=== PATIENT | male | born 1980 | race Caucasian/White ===

== ENCOUNTER 2016-09-03 13:13 | Inpatient (IN) | payer OTHER ==
[2016-09-03] MEDS ORDERED: Sodium Chloride 0.9% 10 ML Syringe FLUSH PRN (13:26)
[2016-09-03] MEDS ORDERED: Sodium Chloride 0.9% 2.5 ML Syringe FLUSH PRN (13:26)
[2016-09-03] MEDS ORDERED: HYDROmorphone 2 MG/ML Syringe IVPUSH PRN (13:28)
[2016-09-03] MEDS ORDERED: Ondansetron 4 MG/2 ML SDV IVPUSH PRN (13:28)
[2016-09-03] MEDS ORDERED: diphenhydrAMINE 50 MG/ML SDV IVPUSH PRN (13:28)
[2016-09-03] MEDS: Piperacillin/Tazobactam 3.375 GM in Sodium Chloride 0.9% 50 ML IV SCH ×2 (13:59→21:39)
[2016-09-03] MEDS: Lactated Ringers 1,000 ML IV SCH ×2 (14:03→21:38)
[2016-09-03] MEDS ORDERED: Bupivacaine 0.5% 30 ML SDV ONE (14:06)
--- NOTE | 2016-09-03 14:39 | PCM.HP ---
H&P History of Present Illness - General Date of Service: 09/03/16 Admit Problem/Dx: Admission Diagnosis/Problem Admission Diagnosis/Problem Acute appendicitis Source of Information: Patient History Limitations: Reports: No Limitations - History of Present Illness Initial Comments - Free Text/Narative: patient is a 35-year-old male who developed right lower quadrant pain last evening. This was not associated bowel or bladder habits. He had 2 episodes of emesis this morning.The patient noticed that the pain is worse when getting up, twisting or sitting down. He denies fevers or chills. he did not take anything for the pain. He came in to his primary care provider's office this morning as the pain was not getting better. A work was performed that show white blood count of 17 with a left shift. CT the abdomen pelvis showed acute appendicitis but did not appear ruptured. Onset of Symptoms: Reports: Sudden Duration of Symptoms: Reports: Constant, Getting Worse Location: Reports: Abdomen Quality: Reports: Ache Severity: Moderate Improves with: Reports: None Context: Reports: Activity/Exercise, Lifting, Exertion. Denies: Sick Contact Associated Symptoms: Reports: No Other Symptoms - Related Data Allergies/Adverse Reactions: Allergies Allergy/AdvReac Type Severity Reaction Status Date / Time No Known Allergies Allergy Verified 04/13/14 13:25 Past Medical History Cardiovascular History: Reports: None Respiratory History: Reports: None Gastrointestinal History: Reports: None Musculoskeletal History: Reports: None Endocrine/Metabolic History: Reports: None Hematologic History: Reports: None - Past Surgical History Head Surgeries/Procedures: Reports: None HEENT Surgical History: Reports: None Cardiovascular Surgical History: Reports: None Respiratory Surgical History: Reports: None GI Surgical History: Reports: None Male Surgical History: Reports: None Endocrine Surgical History: Reports: None Neurological Surgical History: Reports: None Social & Family History - Family History Family Medical History: Noncontributory - Tobacco Use Smoking Status *Q: Never Smoker - Alcohol Use Alcohol Use History: No - Recreational Drug Use Recreational Drug Use: No Drug Use in Last 12 Months: No H&P Review of Systems - Review of Systems: Review Of Systems: ROS reveals no pertinent complaints other than HPI. Exam - Exam Exam: See Below - Exam General: Alert, Oriented HEENT: Conjunctiva Clear, EACs Clear, Hearing Intact, Mucosa Moist & [place], Nares Patent, Pupils Equal, Pupils Reactive Neck: Supple Lungs: Clear to Auscultation, Normal Respiratory Effort Cardiovascular: Regular Rate, Regular Rhythm Abdomen: Normal Bowel Sounds, Soft, McBurney's Sign Back Exam: Normal Inspection Extremities: Normal Inspection Skin: Warm, Dry, Intact, Other (Skin flaking from recent sunburn) Neuro Extensive - Mental Status: Alert, Oriented x3, Normal Mood/Affect, Nl Response to Commands Neuro Extensive - Motor, Sensory, Reflexes: Normal Gait, Normal Reflexes Psychiatric: Alert, Normal Affect, Normal Mood *Q Meaningful Use (ADM) - VTE *Q VTE Criteria *Q: - Stroke *Q Stroke Criteria *Q: - AMI *Q AMI Criteria *Q: - Problem List (1) Acute appendicitis SNOMED Code(s): 26480548 ICD Code: K35.80 - UNSPECIFIED ACUTE APPENDICITIS Status: Acute Current Visit: Yes Problem List Initiated/Reviewed/Updated: Yes Orders Last 24hrs: Active Orders 24 hr Category Date Time Status Patient Status [ADT] Routine ADT 09/03/16 13:26 Active Antiembolic Devices [RC] PER UNIT ROUTINE Care 09/03/16 13:28 Active Oxygen Therapy [RC] PRN Care 09/03/16 13:28 Active RT Incentive Spirometry [RC] ASDIRECTED Care 09/03/16 13:28 Active Up ad Mary [RC] ASDIRECTED Care 09/03/16 13:28 Active Verify Patient Consent Obtain [RC] ASDIRECTED Care 09/03/16 13:26 Active Vital Signs [RC] PER UNIT ROUTINE Care 09/03/16 13:28 Active Nothing Per Oral Diet [DIET] Diet 09/03/16 Lunch Active HYDROmorphone [Dilaudid] Med 09/03/16 13:28 Active 0.5 mg IVPUSH Q1H PRN Lactated Ringers [Ringers, Lactated] 1,000 ml Med 09/03/16 13:30 Active IV ASDIRECTED Ondansetron [Zofran] Med 09/03/16 13:28 Active 4 mg IVPUSH Q6H PRN Piperacillin/Tazobactam [Piperacil-Tazobact] 3.375 gm Med 09/03/16 13:30 Active Sodium Chloride 0.9% [Normal Saline] 50 ml IV Q8H Sodium Chloride 0.9% [Saline Flush] Med 09/03/16 13:26 Active 10 ml FLUSH ASDIRECTED PRN Sodium Chloride 0.9% [Saline Flush] Med 09/03/16 13:26 Active 2.5 ml FLUSH ASDIRECTED PRN diphenhydrAMINE [Benadryl] Med 09/03/16 13:28 Active 25 mg IVPUSH Q4H PRN Peripheral IV Insertion Adult [OM.PC] Routine Oth 09/03/16 13:26 Ordered Sequential Compression Device [OM.PC] Routine Oth 09/03/16 13:26 Ordered Resuscitation Status Routine Resus Stat 09/03/16 13:26 Ordered Medication Orders Diphenhydramine HCl (Benadryl) 25 mg IVPUSH Q4H PRN PRN Reason: Itching Hydromorphone HCl (Dilaudid) 0.5 mg IVPUSH Q1H PRN PRN Reason: Pain (severe 7-10) Lactated Ringer's (Ringers, Lactated) 1,000 mls @ 125 mls/hr IV ASDIRECTED [facility] Last Admin: 09/03/16 14:03 Dose: 125 mls/hr Piperacillin Sod/Tazobactam (Sod 3.375 gm/ Sodium Chloride) 50 mls @ 100 mls/ hr IV Q8H [facility] Last Admin: 09/03/16 13:59 Dose: 100 mls/hr Ondansetron HCl (Zofran) 4 mg IVPUSH Q6H PRN PRN Reason: Nausea/Vomiting Sodium Chloride (Saline Flush) 10 ml FLUSH ASDIRECTED PRN PRN Reason: Keep Vein Open Sodium Chloride (Saline Flush) 2.5 ml FLUSH ASDIRECTED PRN PRN Reason: Keep Vein Open Assessment/Plan Comment:: the patient and I discussed the pathophysiology of acute appendicitis. I explained that they goal standard treatment is to remove the appendix. We discussed laparoscopic and open appendectomy procedures. Should be unable to perform a successful laparoscopic I will convert to an open procedure. We discussed the risks including bleeding infection or damage to surrounding structures. The patient verbalized understanding and wishes to proceed. He is amenable to blood transfusions. The patient last drank something at 12:30 and we will perform the surgery 4 hours after this. He'll be admitted for observation, kept n.p.o., started on IV fluids, and given a dose of Zosyn in the meantime.
--- NOTE | 2016-09-03 15:16 | PCM.PREANE ---
Preanesthetic Assessment - Anesthesia/Transfusion/Family Hx Anesthesia History: No Prior Anesthesia Transfusion History: No Prior Transfusion(s) Intubation History: Unknown - Review of Systems General: No Symptoms Pulmonary: No Symptoms Cardiovascular: No Symptoms Gastrointestinal: No symptoms Neurological: No Symptoms Other: Reports: None - Physical Assessment ASA Class: 2 Mental Status: Alert & Oriented x3 Airway Class: Mallampati = 2 Dentition: Reports: Normal Dentition Thyro-Mental Finger Breadths: 3 Mouth Opening Finger Breadths: 3 ROM/Head Extension: Full Lungs: Clear to auscultation, Normal respiratory effort Cardiovascular: Regular Rate, Regular Rhythm - Allergies Allergies/Adverse Reactions: Allergies Allergy/AdvReac Type Severity Reaction Status Date / Time No Known Allergies Allergy Verified 04/13/14 13:25 - Acknowledgements Anesthesia Type Planned: General Anesthesia Pt an Appropriate Candidate for the Planned Anesthesia: Yes Alternatives and Risks of Anesthesia Discussed w Pt/Guardian: Yes Pt/Guardian Understands and Agrees with Anesthesia Plan: Yes PreAnesthesia Questionnaire HEENT History: Reports: None Cardiovascular History: Reports: None Respiratory History: Reports: None Gastrointestinal History: Reports: None Genitourinary History: Reports: None Musculoskeletal History: Reports: None Neurological History: Reports: None Psychiatric History: Reports: None Endocrine/Metabolic History: Reports: Obesity/BMI 30+ Hematologic History: Reports: None Immunologic History: Reports: None Oncologic (Cancer) History: Reports: None Dermatologic History: Reports: None - Infectious Disease History Infectious Disease History: Reports: None - Past Surgical History Head Surgeries/Procedures: Reports: None HEENT Surgical History: Reports: None Cardiovascular Surgical History: Reports: None Respiratory Surgical History: Reports: None GI Surgical History: Reports: None Male Surgical History: Reports: None Endocrine Surgical History: Reports: None Neurological Surgical History: Reports: None Musculoskeletal Surgical History: Reports: None Oncologic Surgical History: Reports: None Dermatological Surgical History: Reports: None - SUBSTANCE USE Smoking Status *Q: Never Smoker Recreational Drug Use History: No - CURRENT (IN HOUSE) MEDS Current Meds: Current Medications Diphenhydramine HCl (Benadryl) 25 mg IVPUSH Q4H PRN PRN Reason: Itching Hydromorphone HCl (Dilaudid) 0.5 mg IVPUSH Q1H PRN PRN Reason: Pain (severe 7-10) Lactated Ringer's (Ringers, Lactated) 1,000 mls @ 125 mls/hr IV ASDIRECTED [facility] Last Admin: 09/03/16 14:03 Dose: 125 mls/hr Piperacillin Sod/Tazobactam (Sod 3.375 gm/ Sodium Chloride) 50 mls @ 100 mls/ hr IV Q8H [facility] Last Admin: 09/03/16 13:59 Dose: 100 mls/hr Ondansetron HCl (Zofran) 4 mg IVPUSH Q6H PRN PRN Reason: Nausea/Vomiting Sodium Chloride (Saline Flush) 10 ml FLUSH ASDIRECTED PRN PRN Reason: Keep Vein Open Sodium Chloride (Saline Flush) 2.5 ml FLUSH ASDIRECTED PRN PRN Reason: Keep Vein Open Discontinued Medications Bupivacaine HCl (Marcaine 0.5%) Confirm Administered Dose 30 ml .ROUTE .[facility] Stop: 09/03/16 14:07
[2016-09-03] MEDS ORDERED: Propofol 200 MG/20 ML SDV ONE (16:34)
[2016-09-03] MEDS ORDERED: fentaNYL 250 MCG/5 ML SDV ONE ×2 (16:34→17:15)
[2016-09-03] MEDS ORDERED: Ondansetron 4 MG/2 ML SDV ONE (16:34)
[2016-09-03] MEDS ORDERED: Midazolam 1 MG/ML 2 ML SDV ONE (16:34)
[2016-09-03] MEDS ORDERED: Lidocaine 2% 5 ML SDV ONE (16:34)
[2016-09-03] MEDS ORDERED: Succinylcholine/Normal Saline 200 MG/10 ML Syringe ONE (16:34)
[2016-09-03] MEDS ORDERED: Rocuronium 10 MG/ML 10 ML Syringe ONE (16:34)
[2016-09-03] MEDS ORDERED: Labetalol 5 MG/ML 5 ML Syringe ONE (17:47)
[2016-09-03] MEDS ORDERED: ceFAZolin 1 GM Vial ONE (18:48)
[2016-09-03] MEDS ORDERED: HYDROmorphone 2 MG/ML Syringe ONE (18:57)
[2016-09-03] MEDS ORDERED: fentaNYL 100 MCG/2 ML SDV ONE ×2 (19:14→19:38)
[2016-09-03] MEDS ORDERED: fentaNYL 100 MCG/2 ML SDV IVPUSH PRN (19:22)
--- NOTE | 2016-09-03 20:06 | PCM.OPNOTE ---
- General Post-Op/Procedure Note Date of Surgery/Procedure: 09/03/16 Operative Procedure(s): Laparoscopic converted to open appendectomy Findings: Acutely inflamed and enlarged appendix. Non-perforated but retro-cecal making exposure difficult laparoscopically. Converted to open. Pre Op Diagnosis: Acute appendicitis Post-Op Diagnosis: same Anesthesia Technique: General ET tube Primary Surgeon: Valeri Cisneros Secondary Surgeon: Sergio Gu Anesthesia Provider: Jefry Vail Pathology: Appendix Fluid Replacement, Intraop: 2,500 Output, Urine Amount: 150 EBL in mLs: 50 Condition: Good Free Text/Narrative:: Intake & Output 09/03/16 09/03/16 09/03/16 06:59 14:59 22:59 Intake Total 0 Output Total 400 Balance -400
--- NOTE | 2016-09-03 21:27 | PCM.POSTAN ---
POST ANESTHESIA ASSESSMENT - MENTAL STATUS Mental Status: alert, oriented Free Text/Narrative:: Sleeping well in PACU, awakens to voice commands easily. - RESPIRATORY Respiratory Status: respiratory rate WNL, airway patent, O2 saturation stable - CARDIOVASCULAR CV Status: pulse rate WNL, blood pressure stable - GASTROINTESTINAL GI Status: no symptoms - PAIN Pain Score: 0 - POST OP HYDRATION Hydration Status: adequate & stable
--- NOTE | 2016-09-04 00:03 | OR ---
SURGEON: ERIC CASTELLANO MD DATE OF PROCEDURE: 09/03/2016 PREOPERATIVE DIAGNOSIS: Acute appendicitis. POSTOPERATIVE DIAGNOSIS: Acute appendicitis. PROCEDURE PERFORMED: Laparoscopic converted to open appendectomy. CO-SURGEON: Dr. Sergio Gu. ANESTHESIA: General endotracheal anesthesia. FLUIDS: 2500 mL crystalloid. URINE OUTPUT: 150 mL. ESTIMATED BLOOD LOSS: 50 mL. FINDINGS: Retrocecal appendix making laparoscopic exposure difficult. Converted to open. Appendix appeared grossly enlarged and inflamed, but not perforated. COMPLICATIONS: None. INDICATIONS FOR OPERATION: The patient is a 35-year-old male, who presents with 24 hours of right lower quadrant and flank pain. A workup revealed a white blood cell count of 17 with a left shift and CT of the abdomen and pelvis showed acute nonruptured appendicitis. The patient and I discussed the pathophysiology of acute appendicitis. We did explain that the gold standard of treatment is to remove the appendix. I explained both the laparoscopic as well as open appendectomy procedure. Should I be unable to perform it safely laparoscopically, I would then be converting to open. The risks were discussed including bleeding, infection, or damage to surrounding structures. The patient verbalized understanding and wishes to proceed. PROCEDURE IN DETAIL: The patient was brought to the operating room and placed on the operating room table in supine position. A time-out was completed verifying the patient's name, age, date of , allergies, and procedure to be performed. General endotracheal anesthesia was induced. The patient's left arm was tucked at his side and a Rodriguez catheter was placed. The abdomen was prepped and draped in the usual standard fashion. I started by obtaining access to the abdomen in the left upper quadrant. I anesthetized all of my port sites with 0.5% Marcaine prior to making my incisions. A small 1-cm incision was made in the left upper quadrant along the midclavicular line. Using a 5-mm optical trocar, I gained access into the upper abdomen under direct visualization. The abdomen was then insufflated and a 5-mm 30-degree scope was inserted into the abdominal cavity. The area underneath my initial trocar site was inspected and no damage was noted. A 5-mm trocar was then placed lateral to the umbilicus along the left side. A 12-mm trocar was placed under direct visualization in the left lower quadrant. The patient was then placed in Trendelenburg position and airplaned slightly to the left. Using atraumatic graspers, I gently swept away all the small bowel and followed the small bowel to the terminal ileum. The terminal ileum was somewhat adhered to the pelvic sidewall. These adhesions were gently brushed away. There was a large amount of inflammation around the cecum and the appendix appeared retrocecal. I began taking down the retroperitoneal attachments of the cecum laterally using hook cautery. This allowed me to roll the cecum medially to try and expose the appendix. Despite fully mobilizing the cecum and first half of the ascending colon, I was unable to locate the appendix. Given the inability to visualize the appendix, I decided to convert to open. A right lower quadrant incision was made with a 15 blade. This was placed obliquely over McBurney's point. I dissected down through the subcutaneous fat with electrocautery until I reached the external oblique muscle. The muscle fascia was opened and it was noted to be actually over the rectus muscles. I extended my incision laterally using electrocautery. I then carried my incision down through the external oblique and internal oblique and opened the peritoneum with the Metzenbaum scissors. I had left the abdomen insufflated in order to tent up my abdominal wall to allow safer access. A burks of air was obtained and I extended my incision along the peritoneum. Given the patient's size and the difficulty of the case, Dr. Sergio Gu was called in and scrubbed in at this point to assess. Weitlaner and retractors were placed within the abdomen to allow for better visualization. Using a Brayden and hand over hand technique, we were able to identify the ascending colon ABDOMEN: Follow the tenia down to the cecum. The appendix was located in the retrocecal location. The cecum was rolled medial and using blunt dissection, the appendix was brought into view. The appendix appeared grossly inflamed and enlarged, but not ruptured. The appendiceal mesentery was taken down with the harmonic scalpel. A small area of bleeding was noted along the proximal appendicile mesentery. This was grasped with a right angle retractor and tied with a 2-0 silk which achieved adequate hemostasis. The appendix was cleared down to the base of the cecum. A 2-0 Vicryl tie was placed around the base of the appendix and another 2-0 tie was placed just distally to this. The harmonic scalpel was used to transect the appendix between these 2 sutures. The appendix was passed off the field and sent to pathology. A 2-0 silk was then used to make a purse-string around the base of the appendiceal stump to allow it to invaginate. This allowed it to be partially invaginated within the cecum. In order to completely cover the stump, a secondary Z-stitch was placed over the top, which completely invaginated the stump of the appendix. The abdomen was then irrigated with Ancef saline solution. The small bowel was then run from the distal 1/3 down to the terminal ilium. No serosal tears or damage from the laparoscopic portion of the case were noted. The abdomen was then closed in the following fashion. A running 0 Vicryl stitch was used to close the peritoneum. Then, the fibers of the muscular and fascial layers were closed with interrupted 0 Vicryl suture. The subcutaneous fat was closed with interrupted 3-0 Vicryl. The skin was then closed with a running 4-0 Monocryl suture. All of my ports were still in place, so I re-insufflated the abdomen. A 5-mm 30-degree scope was reinserted into the abdomen and the abdominal wall over incision inspected. The abdominal wall closure appeared adequate. We then turned our attention to the 12-mm port site. This was closed with an 0 Vicryl in a Clarence-Julio needle. All the remainder of the ports were then removed under direct visualization and the abdomen allowed to desufflate. The port sites were then closed with interrupted 4-0 Monocryl sutures in the 5-mm port site and a running 4-0 Monocryl stitch at the 12-mm port site. Prior to closing the open incision, I injected the fascia with 0.5% Marcaine plain. All counts were complete and correct at the end of the case. The patient was transferred to the recovery room in stable condition. LEONARD DURON /[id number] AKILA
[2016-09-04] MEDS: Cyclobenzaprine 5 MG Tab PO PRN ×2 (03:23→11:34)
[2016-09-04] MEDS: Acetaminophen/oxyCODONE 325-5 MG Tab PO PRN ×5 (03:23→21:02)
--- NOTE | 2016-09-04 03:34 | PCM.SURGPN ---
- General Info Date of Service: 09/04/16 Date of Surgery/Procedure: 09/03/16 POD#: 1 Post-Op Diagnosis: Acute appendicitis Admission Diagnosis/Problem: Acute appendicitis Functional Status: Reports: pain controlled, tolerating diet, other (Patient woke up around midnight from anesthesia. Pain along RLQ incision with coughing, deep breathing, or moving. No fevers, chills, nausea or vomiting. ) - Review of Systems General: Reports: No Symptoms Pulmonary: Reports: no symptoms Cardiovascular: Reports: No Symptoms Gastrointestinal: Reports: Abdominal pain (along RLQ incision ) Genitourinary: Reports: no symptoms Musculoskeletal: Reports: no symptoms Skin: Reports: no symptoms - Patient Data Vitals - most recent: Last Vital Signs Temp 37.4 C 09/04/16 00:07 Pulse 82 09/04/16 00:07 Resp 20 09/04/16 00:07 BP 105/64 09/04/16 00:07 Pulse Ox 97 09/04/16 00:07 Weight - most recent: 60.016 kg I&O - last 24 hours: Intake & Output 09/03/16 09/03/16 09/04/16 14:59 22:59 06:59 Intake Total 6250 Output Total 550 Balance 5700 Med Orders - Current: Current Medications Cyclobenzaprine HCl (Flexeril) 5 mg PO TID PRN PRN Reason: Spasms Last Admin: 09/04/16 03:23 Dose: 5 mg Diphenhydramine HCl (Benadryl) 25 mg IVPUSH Q4H PRN PRN Reason: Itching Fentanyl (Sublimaze) 50 mcg IVPUSH Q5M PRN PRN Reason: Pain (severe 7-10) Stop: 09/04/16 19:22 Heparin Sodium (Porcine) (Heparin Sodium) 5,000 units SUBCUT Q12HR CARLA Hydromorphone HCl (Dilaudid) 0.5 mg IVPUSH Q1H PRN PRN Reason: Pain (severe 7-10) Last Admin: 09/04/16 00:17 Dose: 0.5 mg Lactated Ringer's (Ringers, Lactated) 1,000 mls @ 125 mls/hr IV ASDIRECTED CARLA Last Admin: 09/03/16 21:38 Dose: 125 mls/hr Ondansetron HCl (Zofran) 4 mg IVPUSH Q6H PRN PRN Reason: Nausea/Vomiting Last Admin: 09/04/16 00:16 Dose: 4 mg Oxycodone/Acetaminophen (Percocet 325-5 Mg) 2 tab PO Q4H PRN PRN Reason: Abdominal Pain Last Admin: 09/04/16 03:23 Dose: 2 tab Sodium Chloride (Saline Flush) 10 ml FLUSH ASDIRECTED PRN PRN Reason: Keep Vein Open Sodium Chloride (Saline Flush) 2.5 ml FLUSH ASDIRECTED PRN PRN Reason: Keep Vein Open Discontinued Medications Bupivacaine HCl (Marcaine 0.5%) Confirm Administered Dose 30 ml .ROUTE .STK-MED ONE Stop: 09/03/16 14:07 Cefazolin Sodium (Ancef) Confirm Administered Dose 1 gm .ROUTE .STK-MED ONE Stop: 09/03/16 18:49 Fentanyl (Sublimaze) Confirm Administered Dose 250 mcg .ROUTE .STK-MED ONE Stop: 09/03/16 16:35 Fentanyl (Sublimaze) Confirm Administered Dose 250 mcg .ROUTE .STK-MED ONE Stop: 09/03/16 17:16 Fentanyl (Sublimaze) Confirm Administered Dose 100 mcg .ROUTE .STK-MED ONE Stop: 09/03/16 19:15 Fentanyl (Sublimaze) Confirm Administered Dose 100 mcg .ROUTE .STK-MED ONE Stop: 09/03/16 19:39 Hydromorphone HCl (Dilaudid) Confirm Administered Dose 2 mg .ROUTE .STK-MED ONE Stop: 09/03/16 18:58 Piperacillin Sod/Tazobactam (Sod 3.375 gm/ Sodium Chloride) 50 mls @ 100 mls/ hr IV Q8H CARLA Last Admin: 09/03/16 21:39 Dose: 100 mls/hr Labetalol HCl (Normodyne) Confirm Administered Dose 25 mg .ROUTE .STK-MED ONE Stop: 09/03/16 17:48 Lidocaine (Xylocaine-Mpf 2%) Confirm Administered Dose 5 ml .ROUTE .STK-MED ONE Stop: 09/03/16 16:35 Midazolam HCl (Versed 1 Mg/Ml) Confirm Administered Dose 2 mg .ROUTE .STK-MED ONE Stop: 09/03/16 16:35 Ondansetron HCl (Zofran) Confirm Administered Dose 4 mg .ROUTE .STK-MED ONE Stop: 09/03/16 16:35 Propofol (Diprivan 20 Ml) Confirm Administered Dose 200 mg .ROUTE .STK-MED ONE Stop: 09/03/16 16:35 Rocuronium [place] (Zemuron) Confirm Administered Dose 100 mg .ROUTE .STK-MED ONE Stop: 09/03/16 16:35 Succinylcholine Chloride (Succinylcholine In Ns Pf) Confirm Administered Dose 200 mg .ROUTE .STK-MED ONE Stop: 09/03/16 16:35 - Exam Wound/Incisions: dressing dry and intact, drainage (scant) Quality Assessment: supplemental oxygen General: alert, oriented, cooperative, no acute distress HEENT: Pupils equal, Pupils reactive Neck: supple Lungs: Clear to auscultation, Normal respiratory effort Cardiovascular: Regular Rate, Regular Rhythm Abdomen: soft, no distension, tenderness (along RLQ incision). No: rigidity, rebound, guarding, distension Extremities: no edema Skin: warm, dry, intact Physical Findings Comment:: UOP in linder is clear yellow - Problem List & Annotations (1) Acute appendicitis SNOMED Code(s): 37854286 Code(s): K35.80 - UNSPECIFIED ACUTE APPENDICITIS Status: Acute Current Visit: Yes - Problem List Review Problem List Initiated/Reviewed/Updated: Yes - My Orders Last 24 Hours: Active Orders 24 hr Category Date Time Status Admission Status [Patient Status] [ADT] Routine ADT 09/03/16 20:03 Active Antiembolic Devices [RC] PER UNIT ROUTINE Care 09/03/16 13:28 Active Bradycardia-Neuroaxis [employer] [RC] ROUTINE Care 09/03/16 19:22 Active Communication Order [RC] DAILY Care 09/04/16 03:20 Active DC Linder Catheter [Urinary Catheter Removal] [RC] Per Care 09/04/16 03:08 Active Unit Routine Hypertension-Neuroaxis [employer] [RC] ROUTINE Care 09/03/16 19:22 Active Hypotension-Neuroaxis [employer] [RC] ROUTINE Care 09/03/16 19:22 Active Oxygen Therapy [RC] PRN Care 09/03/16 13:28 Active Up ad Mary [RC] ASDIRECTED Care 09/03/16 13:28 Active Vital Signs [RC] Q4H Care 09/03/16 13:28 Active Advance Diet Instructions [DIET] Diet 09/03/16 Breakfast Active Acetaminophen/oxyCODONE [Percocet 325-5 MG] Med 09/03/16 19:59 Active 2 tab PO Q4H PRN Cyclobenzaprine [Flexeril] Med 09/03/16 19:59 Active 5 mg PO TID PRN HYDROmorphone [Dilaudid] Med 09/03/16 13:28 Active 0.5 mg IVPUSH Q1H PRN Heparin Sodium Med 09/04/16 08:00 Active 5,000 units SUBCUT Q12HR Lactated Ringers [Ringers, Lactated] 1,000 ml Med 09/03/16 13:30 Active IV ASDIRECTED Ondansetron [Zofran] Med 09/03/16 13:28 Active 4 mg IVPUSH Q6H PRN Sodium Chloride 0.9% [Saline Flush] Med 09/03/16 13:26 Active 10 ml FLUSH ASDIRECTED PRN Sodium Chloride 0.9% [Saline Flush] Med 09/03/16 13:26 Active 2.5 ml FLUSH ASDIRECTED PRN diphenhydrAMINE [Benadryl] Med 09/03/16 13:28 Active 25 mg IVPUSH Q4H PRN fentaNYL [Sublimaze] Med 09/03/16 19:22 Active 50 mcg IVPUSH Q5M PRN Peripheral IV Insertion Adult [OM.PC] Routine Oth 09/03/16 13:26 Ordered Sequential Compression Device [OM.PC] Routine Oth 09/03/16 13:26 Ordered Resuscitation Status Routine Resus Stat 09/03/16 13:26 Ordered Medication Orders Cyclobenzaprine HCl (Flexeril) 5 mg PO TID PRN PRN Reason: Spasms Last Admin: 09/04/16 03:23 Dose: 5 mg Diphenhydramine HCl (Benadryl) 25 mg IVPUSH Q4H PRN PRN Reason: Itching Fentanyl (Sublimaze) 50 mcg IVPUSH Q5M PRN PRN Reason: Pain (severe 7-10) Stop: 09/04/16 19:22 Heparin Sodium (Porcine) (Heparin Sodium) 5,000 units SUBCUT Q12HR CARLA Hydromorphone HCl (Dilaudid) 0.5 mg IVPUSH Q1H PRN PRN Reason: Pain (severe 7-10) Last Admin: 09/04/16 00:17 Dose: 0.5 mg Lactated Ringer's (Ringers, Lactated) 1,000 mls @ 125 mls/hr IV ASDIRECTED CARLA Last Admin: 09/03/16 21:38 Dose: 125 mls/hr Infusion: 09/03/16 21:38 Dose: 125 mls/hr Admin: 09/03/16 14:03 Dose: 125 mls/hr Ondansetron HCl (Zofran) 4 mg IVPUSH Q6H PRN PRN Reason: Nausea/Vomiting Last Admin: 09/04/16 00:16 Dose: 4 mg Oxycodone/Acetaminophen (Percocet 325-5 Mg) 2 tab PO Q4H PRN PRN Reason: Abdominal Pain Last Admin: 09/04/16 03:23 Dose: 2 tab Sodium Chloride (Saline Flush) 10 ml FLUSH ASDIRECTED PRN PRN Reason: Keep Vein Open Sodium Chloride (Saline Flush) 2.5 ml FLUSH ASDIRECTED PRN PRN Reason: Keep Vein Open - Plan Plan (Free Text/Narrative):: -Pain: IV dilaudid, po percocet prn pain, flexeril prn muscle spasms -CV/Pulmonary: Stable. Encouraged IS use. -GI: Advance diet from clears to regular as tolerated. D/C IVF once taking adequate po. -Renal: Linder removed. Monitor UOP. Adequate thus far. -Heme/ID: IV zosyn discontinued. No need for labs as long as patient is doing clincally well and vitals stable given that his appendix was not ruptured. -Px: Heparin subq to start in am. -Dispo: 1-2 more days in hospital for pain control. My partner, Dr. Sergio Gu to cover patient over weekend. If D/C home will see me in follow up in 2 weeks. No lifting >20 lbs for six weeks. No contact sports/activities for 6 weeks. No work for 2 weeks.
[2016-09-04] MEDS: Lactated Ringers 1,000 ML IV SCH (06:12)
[2016-09-04] MEDS: Heparin Sodium 5,000 Units/ML Vial SUBCUT SCH ×3 (08:00→20:05)
--- NOTE | 2016-09-04 09:28 | PCM48HPAN ---
Post Anesthesia Note - EVALUATION WITHIN 48HRS OF ANESTHETIC Vital Signs in Normal Range: Yes Patient Participated in Evaluation: Yes Respiratory Function Stable: Yes Airway Patent: Yes Cardiovascular Function Stable: Yes Hydration Status Stable: Yes Pain Control Satisfactory: Yes (Just took a percocet) Nausea and Vomiting Control Satisfactory: Yes (Just finished eating breakfast) Mental Status Recovered: Yes - COMMENTS/OBSERVATIONS Free Text/Narrative:: Denies any complaints or concerns at this time. Has not been out of bed yet.
[2016-09-05] MEDS: Acetaminophen/oxyCODONE 325-5 MG Tab PO PRN ×3 (01:00→09:42)
[2016-09-05 08:10] VITALS: BP 125/79
[2016-09-05] MEDS: Heparin Sodium 5,000 Units/ML Vial SUBCUT SCH (09:08)
--- NOTE | 2016-09-07 13:14 | PCM.SN ---
- Free Text/Narrative Note: Patient is a 35-year-old male who was admitted for acute appendicitis. He underwent a laparoscopic converted to open appendectomy. I saw the patient on postop day #1 (09/04/16) at 3 AM. He was doing well at the time but had significant pain. I signed him out to my partner Dr. Gu who saw him in the afternoon. It was told in report that the patient continue to have pain control issues and was still requiring IV pain medications. His vitals appeared to be stable.The patient stayed overnight for pain control.
--- NOTE | 2016-09-07 13:17 | PCM.DCSUM1 ---
Discharge Summary - Hospital Course Free Text/Narrative:: Patient is a 35-year-old male who was seen with a one-day history of right lower quadrant/flank pain. CT showed acute appendicitis. He was taken to the operating room for an appendectomy. 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 Dr. Sergio Gu assisted me in this case. Postoperatively the patient did well. Postop day one the patient was having significant pain control issues requiring IV narcotics. His vital signs were stable. His diet was advanced from clears to regular. Postop day #2 the patient's pain was well- controlled on oral medications. He was discharged home by my partner Dr. Gu. - Discharge Data Discharge Date: 09/05/16 Discharge Disposition: Home, Self-Care 01 Condition: Good - Discharge Diagnosis/Problem(s) (1) Acute appendicitis SNOMED Code(s): 89464227 ICD Code: K35.80 - UNSPECIFIED ACUTE APPENDICITIS Status: Acute - Patient Summary/Data Operative Procedure(s) Performed: Laparoscopic converted to open appendectomy - Patient Instructions Diet: Usual Diet as Tolerated Activity: No Lifting Over 25 Pounds Activity, Other: No lifting >25lb for 6 weeks. Driving: Do Not Drive Showering/Bathing: August Shower Wound/Incision Care: Keep Operative Site/Wound Site Clean and Dry Notify Provider of: Fever, Increased Pain, Nausea and/or Vomiting - Discharge Plan Prescriptions/Med Rec: oxyCODONE HCl/Acetaminophen [Percocet 5-325 mg Tablet] 1 each PO Q4H #20 tablet Home Medications: Home Meds oxyCODONE HCl/Acetaminophen [Percocet 5-325 mg Tablet] 1 each PO Q4H #20 tablet 09/05/16 [Rx] Patient Handouts: Acetaminophen; Oxycodone tablets, Open Appendectomy, Care After, Appendicitis, [id number] Referrals: Valeri Cisneros MD [Physician] - 09/15/16 2:00 pm (Follow-up in 2 weeks ) - Discharge Summary/Plan Comment DC Time >30 min.: No - General Info Date of Service: 09/05/16 Functional Status: Reports: pain controlled, tolerating diet, ambulating, urinating - Review of Systems General: Reports: No Symptoms Gastrointestinal: Reports: Abdominal pain - Patient Data Vitals - Most Recent: Last Vital Signs Temp 36.6 C 09/05/16 08:00 Pulse 105 H 09/05/16 08:00 Resp 14 09/05/16 08:00 BP 125/79 09/05/16 08:00 Pulse Ox 96 09/05/16 08:00 Weight - Most Recent: 60.016 kg Med Orders - Current: Current Medications Discontinued Medications Bupivacaine HCl (Marcaine 0.5%) Confirm Administered Dose 30 ml .ROUTE .STK-MED ONE Stop: 09/03/16 14:07 Cefazolin Sodium (Ancef) Confirm Administered Dose 1 gm .ROUTE .STK-MED ONE Stop: 09/03/16 18:49 Cyclobenzaprine HCl (Flexeril) 5 mg PO TID PRN PRN Reason: Spasms Last Admin: 09/04/16 11:34 Dose: 5 mg Diphenhydramine HCl (Benadryl) 25 mg IVPUSH Q4H PRN PRN Reason: Itching Fentanyl (Sublimaze) Confirm Administered Dose 250 mcg .ROUTE .STK-MED ONE Stop: 09/03/16 16:35 Fentanyl (Sublimaze) Confirm Administered Dose 250 mcg .ROUTE .STK-MED ONE Stop: 09/03/16 17:16 Fentanyl (Sublimaze) Confirm Administered Dose 100 mcg .ROUTE .STK-MED ONE Stop: 09/03/16 19:15 Fentanyl (Sublimaze) 50 mcg IVPUSH Q5M PRN PRN Reason: Pain (severe 7-10) Stop: 09/04/16 19:22 Fentanyl (Sublimaze) Confirm Administered Dose 100 mcg .ROUTE .STK-MED ONE Stop: 09/03/16 19:39 Heparin Sodium (Porcine) (Heparin Sodium) 5,000 units SUBCUT Q12HR CARLA Last Admin: 09/05/16 09:08 Dose: 5,000 units Hydromorphone HCl (Dilaudid) 0.5 mg IVPUSH Q1H PRN PRN Reason: Pain (severe 7-10) Last Admin: 09/04/16 00:17 Dose: 0.5 mg Hydromorphone HCl (Dilaudid) Confirm Administered Dose 2 mg .ROUTE .STK-MED ONE Stop: 09/03/16 18:58 Lactated Ringer's (Ringers, Lactated) 1,000 mls @ 125 mls/hr IV ASDIRECTED CARLA Last Admin: 09/04/16 06:12 Dose: 125 mls/hr Piperacillin Sod/Tazobactam (Sod 3.375 gm/ Sodium Chloride) 50 mls @ 100 mls/ hr IV Q8H [facility] Last Admin: 09/03/16 21:39 Dose: 100 mls/hr Labetalol HCl (Normodyne) Confirm Administered Dose 25 mg .ROUTE .STK-MED ONE Stop: 09/03/16 17:48 Lidocaine (Xylocaine-Mpf 2%) Confirm Administered Dose 5 ml .ROUTE .STK-MED ONE Stop: 09/03/16 16:35 Midazolam HCl (Versed 1 Mg/Ml) Confirm Administered Dose 2 mg .ROUTE .STK-MED ONE Stop: 09/03/16 16:35 Ondansetron HCl (Zofran) 4 mg IVPUSH Q6H PRN PRN Reason: Nausea/Vomiting Last Admin: 09/04/16 00:16 Dose: 4 mg Ondansetron HCl (Zofran) Confirm Administered Dose 4 mg .ROUTE .STK-MED ONE Stop: 09/03/16 16:35 Oxycodone/Acetaminophen (Percocet 325-5 Mg) 2 tab PO Q4H PRN PRN Reason: Abdominal Pain Last Admin: 09/05/16 09:42 Dose: 2 tab Propofol (Diprivan 20 Ml) Confirm Administered Dose 200 mg .ROUTE .STK-MED ONE Stop: 09/03/16 16:35 Rocuronium [place] (Zemuron) Confirm Administered Dose 100 mg .ROUTE .STK-MED ONE Stop: 09/03/16 16:35 Sodium Chloride (Saline Flush) 10 ml FLUSH ASDIRECTED PRN PRN Reason: Keep Vein Open Sodium Chloride (Saline Flush) 2.5 ml FLUSH ASDIRECTED PRN PRN Reason: Keep Vein Open Succinylcholine Chloride (Succinylcholine In Ns Pf) Confirm Administered Dose 200 mg .ROUTE .STK-MED ONE Stop: 09/03/16 16:35 - Exam General: Reports: alert, oriented Abdomen: Reports: soft, no tenderness, no distension Wound/Incisions: Reports: healing well, dressing dry and intact *Q Meaningful Use (DIS) - VTE *Q VTE Criteria *Q: - Stroke *Q Stroke Criteria *Q: - AMI *Q AMI Criteria *Q:
== END 2016-09-05 10:05 | disposition home or self-care (01) | DRG 343 ==
LOC: MW.SDS 13:13 → MW.MS 13:16 → MW.SDS 13:26 → MW.MS 13:26 → OBSVTOIN 13:26 → MW.MS 19:34
PROVIDERS: ADMIT Surgery; ATTEND Surgery
PROC: 0DTJ0ZZ Resection of Appendix, Open Approach (ICD-10-PCS; principal; 2016-09-03)
PROC: 0DJD4ZZ Inspection of Lower Intestinal Tract, Percutaneous Endoscopic Approach (ICD-10-PCS; 2016-09-03)
DX: K35.80 Unspecified acute appendicitis (principal); R10.31 Right lower quadrant pain
CPT/HCPCS: 00840; 36415; 74177; 74177-26; 80053; 81001; 85025; 86140; 88304; A9270-GY; J0690; J1170; J1644; J2250; J2405; J2543; J2704; J3010; J7050; J7120; Q9967

== ENCOUNTER 2024-03-31 07:05 | Day surgery (SDC) | payer BC ==
[2024-03-31] MEDS: Lactated Ringers 1,000 ML IV SCH (07:28)
[2024-03-31] MEDS ORDERED: fentaNYL 100 MCG/2 ML SDV ONE (09:14)
[2024-03-31] MEDS ORDERED: propofoL 500 MG/50 ML 50 ML ONE (09:26)
[2024-03-31] MEDS ORDERED: Lactated Ringers 1,000 ML IV SCH (09:45)
[2024-03-31 10:00] VITALS: BP 132/101; PULSE 88
== END 2024-03-31 10:10 | disposition home or self-care (01) ==
LOC: MW.SDS 07:05
PROVIDERS: ATTEND Surgery
DX: K62.5 Hemorrhage of anus and rectum (principal); Z80.0 Family history of malignant neoplasm of digestive organs; I10 Essential (primary) hypertension; Z88.0 Allergy status to penicillin
CPT/HCPCS: 45378; J2704; J3010; J7120